=== PATIENT | female | born 1980 | race African-American/Black ===

== ENCOUNTER 2020-09-26 21:06 | Emergency (ER) | payer MEDICAID ==
[~2020-09-26] VITALS: Ht 165.1 cm; Wt 63.5 kg
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
[2020-09-26] MEDS ORDERED: ZIPRASIDONE MESYLATE 20 MG/ML VIAL IM ONE (21:25)
--- NOTE | 2020-09-26 21:51 | NUR ---
PEDRO ABHIJIT WAS SWABBED AND GIVEN TO LAB AT BEDSIDE
--- NOTE | 2020-09-26 22:30 | NUR ---
LAB AT BEDSIDE DRAWING BLOOD. COVID NOVEL WAS DONE AND SENT WITH LAB.
[2020-09-26 22:38] LABS: APPEARANCE,URINE CLEAR (CLEAR); BILIRUBIN,URINE NEGATIVE (NEGATIVE); BLOOD, URINE NEGATIVE (NEGATIVE); COLOR,URINE YELLOW (YELLOW); LEUKOCYTE ESTERASE ,URINE NEGATIVE (NEGATIVE); NITRITE, URINE NEGATIVE (NEGATIVE); UGLUCOSE NEGATIVE (NEGATIVE)
[2020-09-26 22:41] LABS: BASOPHILS # (AUTO) 0.2 K/uL (0.00-0.22); BASOPHILS % (AUTO) 3.1 % (0.0-2.0); EOSINOPHILS # (AUTO) 0.2 K/uL (0-0.4); EOSINOPHILS % (AUTO) 2.3 % (0.0-4.0); HEMATOCRIT 33.1 % (36-48); HEMOGLOBIN 10.7 g/dL (12.0-16.0); LYMPHOCYTES # (AUTO) 1.6 K/uL (2.5-16.5); LYMPHOCYTES % (AUTO) 22.4 % (20.5-51.1); MEAN CORPUSCULAR HEMOGLOBIN 27 pg (27-31); MEAN CORPUSCULAR HGB CONC 32 g/dL (33-37); MEAN CORPUSCULAR VOLUME 83.4 fL (80-94); MONOCYTES # (AUTO) 0.5 K/uL (0.8-1.0); MONOCYTES % (AUTO) 6.6 % (1.7-9.3); NEUTROPHILS # (AUTO) 4.7 K/uL (1.8-7.7); NEUTROPHILS % (AUTO) 65.6 % (42.2-75.2); PLATELET COUNT (AUTO) 413 K/uL (140-450); RED BLOOD CELL COUNT(AUTO) 3.96 MIL/uL (4.20-5.40); RED CELL DISTRIBUTION WIDTH 17.3 % (11.6-13.7); WHITE BLOOD COUNT (AUTO) 7.2 K/uL (4.8-10.8)
[2020-09-26 22:48] LABS: BARBITURATE, URINE NEGATIVE ng/ml (NEG <=200); BENZODIAZEPINE, URINE NEGATIVE ng/mL (NEG <=200); CANNABINOID, URINE POSITIVE ng/mL (NEG <=50); COCAINE, URINE NEGATIVE ng/mL (NEG <=300); PHENCYCLIDINE SCREEN,URINE NEGATIVE ng/mL (NEG <=25)
[2020-09-26 22:49] LABS: OPIATE, URINE NEGATIVE ng/mL (NEG <=2000)
[2020-09-26 22:58] LABS: ANION GAP 16.8 (8-16); ASPARTATE AMINOTRANSFERASE 21 U/L (15-37); CARBON DIOXIDE 25.2 mmol/L (21-32); CHLORIDE 103 mmol/L (98-107); CREATININE 1.1 mg/dL (0.6-1.3); GFR ARICAN-AMERICAN 71 mL/min (>90); GLUCOSE 93 mg/dL (74-106); SALICYLATE 3.1 mg/dL (2.8-20.0); SODIUM SERUM 141 mmol/L (136-145); TOTAL BILIRUBIN 0.2 mg/dL (0.0-1.0); UREA NITROGEN, BLOOD 7 mg/dL (7-18)
[2020-09-26 23:00] LABS: ACETAMINOPHEN < 0.5 ug/ml (10-30)
--- NOTE | 2020-09-27 03:00 | NUR ---
PT RESTING IN BED COMFORTABLY. WILL REDRAWN LABS AT 0500 FOR REPEAT ALCOHOL SERUM.
--- NOTE | 2020-09-27 03:09 | NUR ---
PT AWAKE, ASKED FOR A BLANKET, BROUGHT HER A BLANKET AND STARTED YELLING AND BEING VERBALLY AGGRESSIVE.
--- NOTE | 2020-09-27 03:14 | NUR ---
PT THREW SANDWICH AT NURSING STATION. PT REDIRECTED TO ROOM AND IS NOW LAYING DOWN.
[2020-09-27] MEDS ORDERED: diphenhydrAMINE 50 MG/ML VIAL IM ONE (03:30)
[2020-09-27] MEDS ORDERED: LORazepam 2 MG/ML VIAL IM ONE (03:30)
[2020-09-27] MEDS ORDERED: ZIPRASIDONE MESYLATE 20 MG/ML VIAL IM ONE (03:30)
--- NOTE | 2020-09-27 06:51 | NUR ---
PT WOKE UP, ASKED FOR A BLANKET. PT DID NOT GET AGGRESSIVE WHEN IN THE ROOM, PT WAS COMPLIANT. NEW BLANKET AND NEW MASK WAS GIVEN.
--- NOTE | 2020-09-27 07:15 | NUR ---
Patient provided with non-slip socks, restraints removed, and ambulated to restroom with steady/even gait.
--- NOTE | 2020-09-27 07:15 | NUR ---
Report and continuation of care received from KAYLA Corley.
--- NOTE | 2020-09-27 07:40 | NUR ---
Patient provided with turkey sandwich and 2 cranberry juices per request. Pt presents sleeping in semi-fowlers position at this time. Respirations even/unlabored.
--- NOTE | 2020-09-27 08:15 | NUR ---
Patient completed one cranberry juice, sandwich sitting at bedside. Pt presents both eyes closed lying on right side in low-fowlers position. Bed locked in lowest position, side rails x2.
--- NOTE | 2020-09-27 09:05 | NUR ---
Received packet. [facility] aware patient is pending PCR Covid results.
--- NOTE | 2020-09-27 09:17 | NUR ---
Packet faxed to: [facility]
--- NOTE | 2020-09-27 09:22 | NUR ---
Patient lying on right side of bed in low-fowlers position. Patient completed sandwich. Respirations even/unlabored. Bed locked in lowest position, side rails x 2.
--- NOTE | 2020-09-27 10:50 | NUR ---
SPOKE TO JUAN FROM [facility] REGARDING PATIENT. STATES SHE WILL CALL BACK WITH A BED ASSIGNMENT
--- NOTE | 2020-09-27 11:20 | NUR ---
Patient lying upright in bed, low-fowlers position. Respirations even/unlabored. Bed locked in lowest position, side rails x 2.
--- NOTE | 2020-09-27 11:56 | NUR ---
Report provided via telephone to KAYLA Thacker at [facility]. Accepting doctor: Dr. Urbina
--- NOTE | 2020-09-27 12:05 | NUR ---
Patient to be transferred to [facility]. Is being transferred due to higher level of care. Receiving facility has accepting physician and available space. ER physician has signed transfer form. Patient or responsible democrat has agreed to transfer and signed form. Patient belongings inventoried and will be sent with patient. Copy of nursing notes, lab reports, EKG, Physicians Orders and X-rays to be sent with patient. Report called to KAYLA Thacker at receiving facility. [facility] ambulance service has been called for transfer. ETA is 45 minutes.
--- NOTE | 2020-09-27 13:39 | NUR ---
[facility] is at bedside to pick patient up. Security paged to bring personal belongings.
[2020-09-27 13:40] VITALS: BP 124/72
== END 2020-09-27 13:39 | disposition designated cancer center or children's hospital (05) ==
LOC: MED 21:06
DX: R45.851 Suicidal ideations (principal); F79 Unspecified intellectual disabilities; I10 Essential (primary) hypertension; F31.9 Bipolar disorder, unspecified; Z91.018 Allergy to other foods; Z20.822 Contact with and (suspected) exposure to COVID-19
CPT/HCPCS: 36415; 80053; 80305; 81003; 81025; 84484; 85025; 87426; 96372; 99285; G0480; G0482; J1200; J2060; J3486; U0003

== ENCOUNTER 2023-02-22 05:20 | Emergency (ER) | payer MEDICAID ==
[~2023-02-22] VITALS: Ht 175.3 cm; Wt 68.0 kg
[2023-02-22] VITALS (8 sets, daily range): BP systolic 142; BP diastolic 85; PULSE 64; RESP 17; TEMP 98; O2SAT 98–99
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
[2023-02-22 05:43] LABS: BASOPHILS % (AUTO) 0.3 % (0.0-2.0); EOSINOPHILS # (AUTO) 0.1 K/uL (0-0.4); HEMATOCRIT 36.5 % (36-48); HEMOGLOBIN 11.8 g/dL (12.0-16.0); LYMPHOCYTES # (AUTO) 2.1 K/uL (2.5-16.5); LYMPHOCYTES % (AUTO) 32.3 % (20.5-51.1); MEAN CORPUSCULAR HEMOGLOBIN 27 pg (27-31); MEAN CORPUSCULAR HGB CONC 32 g/dL (33-37); MEAN CORPUSCULAR VOLUME 84.7 fL (80-94); MONOCYTES # (AUTO) 0.4 K/uL (0.8-1.0); MONOCYTES % (AUTO) 6.6 % (1.7-9.3); NEUTROPHILS # (AUTO) 3.9 K/uL (1.8-7.7); NEUTROPHILS % (AUTO) 59.8 % (42.2-75.2); PLATELET COUNT (AUTO) 235 K/uL (140-450); RED BLOOD CELL COUNT(AUTO) 4.32 MIL/uL (4.20-5.40); RED CELL DISTRIBUTION WIDTH 17.1 % (11.6-13.7); WHITE BLOOD COUNT (AUTO) 6.6 K/uL (4.8-10.8)
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
[2023-02-22 06:00] LABS: BARBITURATE, URINE NEGATIVE ng/ml (NEG <=200); BENZODIAZEPINE, URINE NEGATIVE ng/mL (NEG <=200); CANNABINOID, URINE POSITIVE ng/mL (NEG <=50); COCAINE, URINE NEGATIVE ng/mL (NEG <=300); OPIATE, URINE NEGATIVE ng/mL (NEG <=2000); PHENCYCLIDINE SCREEN,URINE NEGATIVE ng/mL (NEG <=25)
[2023-02-22 06:21] LABS: ALBUMIN 3.4 g/dL (3.4-5.0); ANION GAP 12.8 (8-16); ASPARTATE AMINOTRANSFERASE 132 U/L (15-37); CARBON DIOXIDE 27.7 mmol/L (21-32); CHLORIDE 103 mmol/L (98-107); CREATININE 0.8 mg/dL (0.6-1.3); GFR ARICAN-AMERICAN 102 mL/min (>90); GLUCOSE 83 mg/dL (74-106); POTASSIUM 3.5 mmol/L (3.5-5.1); SALICYLATE 3.2 mg/dL (2.8-20.0); SODIUM SERUM 140 mmol/L (136-145); TOTAL BILIRUBIN 0.3 mg/dL (0.0-1.0); UREA NITROGEN, BLOOD 2 mg/dL (7-18)
--- NOTE | 2023-02-22 06:28 | NUR ---
DR. REYNOSO AT BEDSIDE
[2023-02-22 06:44] LABS: ACETAMINOPHEN < 0.5 ug/ml (10-30)
--- NOTE | 2023-02-22 07:19 | NUR ---
Pt report given to CHANDLER PACHECO. Transfer of care at this time.
--- NOTE | 2023-02-22 07:22 | NUR ---
PT SLEEPING , CHEST RISE/FALL NOTED, CONTINUE TO MONITOR FROM NURSING STATION BY ED STAFF. SAFETY MAINTAINED.
--- NOTE | 2023-02-22 08:46 | NUR ---
PT CONTINUES TO SLEEP, CHEST RISE/FALL NOTED, CONTINUE TO MONITOR FROM NURSING STATION BY ED STAFF. SAFETY MAINTAINED.
--- NOTE | 2023-02-22 10:05 | NUR ---
DR. SHAH AT BEDSIDE FOR PSYCH EVAL. PT PLACED ON 5150 HOLD FOR DTS.
--- NOTE | 2023-02-22 10:33 | NUR ---
PT LAYING IN BED TALKING TO HERSELF
[2023-02-22] MEDS ORDERED: ACETAMINOPHEN EXTRA STRENGTH 500 MG TAB PO ONE (12:20)
--- NOTE | 2023-02-22 12:20 | NUR ---
TYLENOL 1000MG AND PROZAC 20MG GIVEN. PT ATE SANDWICH AND ORANGE JUICE
[2023-02-22] MEDS: OLANZapine 5 MG ODT PO SCH ×2 (12:29→17:00)
--- NOTE | 2023-02-22 13:53 | NUR ---
PT PLACED ON 5150 HOLD.
--- NOTE | 2023-02-22 16:01 | NUR ---
PT CONTINUES TO SLEEP, CHEST RISE/FALL NOTED, CONTINUE TO MONITOR FROM NURSING STATION BY ED STAFF. SAFETY MAINTAINED.
--- NOTE | 2023-02-22 17:10 | NUR ---
PT REFUSED TO TAKE MEDICATION, STATES SHE JUST WANTS TO SLEEP.
--- NOTE | 2023-02-22 18:46 | NUR ---
PT CONTINUES TO SLEEP, CHEST RISE/FALL NOTED, CONTINUE TO MONITOR FROM NURSING STATION BY ED STAFF. SAFETY MAINTAINED.
--- NOTE | 2023-02-22 19:54 | NUR ---
RECEIVED REPORT FROM CHANDLER PACHECO. PT ASLEEP IN BED. RESPIRATIONS EVEN AND UNLABORED. IN VIEW OF NURSES STATION. BED IN LOWEST POSITION.
--- NOTE | 2023-02-22 21:50 | NUR ---
PT SLEEPING IN BED WITH NO S/S PAIN OR DISTRESS. BED IN LOWEST POSITION. SAFETY MEASURES IN PLACE. PT IN VIEW OF NURSES STATION AND STAFF.
--- NOTE | 2023-02-22 23:58 | NUR ---
PT SLEEPING IN BED WITH NO S/S PAIN OR DISTRESS. SAFETY MEASURES IN PLACE. IN VIEW OF NURSES STATION.
[2023-02-23 00:21] VITALS: O2SAT 99
--- NOTE | 2023-02-23 02:11 | NUR ---
PT SLEEPING IN BED WITH NO S/S PAIN OR DISTRESS. SAFETY MEASURES IN PLACE. IN VIEW OF NURSES STATION.
[2023-02-23 02:39] VITALS: O2SAT 99
--- NOTE | 2023-02-23 04:13 | NUR ---
PT SLEEPING, RESPIRATIONS EVEN AND UNLABORED. SAFETY MEASURES IN PLACE.
[2023-02-23 04:53] VITALS: O2SAT 98
[2023-02-23 05:13] VITALS: O2SAT 98
--- NOTE | 2023-02-23 06:21 | NUR ---
PT ASLEEP WITH NO S/S PAIN OR DISTRESS. RESPIRATIONS EVEN AND UNLABORED. PT IN VIEW OF NURSES STATION. SAFETY MEASURES IN PLACE.
--- NOTE | 2023-02-23 07:17 | NUR ---
Pt report given to CHANDLER ENAMORADO. Transfer of care at this time.
--- NOTE | 2023-02-23 07:20 | NUR ---
Report recieved from CHANDLER Person for transfer of care.
--- NOTE | 2023-02-23 08:45 | NUR ---
Patient is sitting up on bed, eating breakfast.
[2023-02-23] MEDS ORDERED: FLUoxetine 20 MG CAP PO SCH (09:00)
--- NOTE | 2023-02-23 09:15 | NUR ---
Patient is requesting to call sister Jannie [phone]. No answer. Patient wants to leave voicemail, patient was handed phone.
--- NOTE | 2023-02-23 09:24 | NUR ---
Patient talking on the phone with family.
--- NOTE | 2023-02-23 11:27 | NUR ---
Packet faxed to: [facility]
--- NOTE | 2023-02-23 11:50 | NUR ---
Patient is resting on bed, respirations even and unlabored. No signs of distress noted. Close to nurses station. Frequent visual rounds being made.
--- NOTE | 2023-02-23 12:01 | NUR ---
Spoke to Mariajose at [facility]. Patient has been accepted by Dr. Antonio, going to [facility]. Requesting patient to arrive by 4PM. Call for report 30 minutes prior to arrival at [phone], press [phone] then [phone]. If any issues occur for giving report please call back Mariajose at [phone], her fax number is [phone].
--- NOTE | 2023-02-23 13:35 | NUR ---
Patient was provided with lunch tray, patient has 8/[address] low back[address] Dr. Nuñez made aware.
[2023-02-23] MEDS: OLANZapine 5 MG ODT PO SCH (13:42)
[2023-02-23] MEDS ORDERED: ACETAMINOPHEN EXTRA STRENGTH 500 MG TAB PO ONE (14:00)
--- NOTE | 2023-02-23 15:47 | NUR ---
Called and gave report to Gerardo at [facility].
[2023-02-23 17:17] VITALS: BP 151/87; PULSE 75; RESP 16; TEMP 97.5; O2SAT 99
--- NOTE | 2023-02-23 17:17 | NUR ---
Patient to be transferred to [facility]. Is being transferred due to Insurance. Receiving facility has accepting physician and available space. ER physician has signed transfer form. Patient or responsible libertarian has agreed to transfer and signed form. Patient belongings inventoried and will be sent with patient. Copy of nursing notes, lab reports, EKG, Physicians Orders and X-rays to be sent with patient. Report called to Gerardo at receiving facility. [facility] ambulance service has been called for transfer. ETA is now.
--- NOTE | 2023-02-23 18:02 | NUR ---
The patient's care was reviewed and supervised by ANTONIO URIBE RN.
== END 2023-02-23 17:17 | disposition short-term general hospital (02) ==
LOC: MED 05:20
DX: R45.851 Suicidal ideations (principal); F29 Unspecified psychosis not due to a substance or known physiological condition; F22 Delusional disorders; I10 Essential (primary) hypertension; Z91.018 Allergy to other foods; Z20.822 Contact with and (suspected) exposure to COVID-19
CPT/HCPCS: 36415; 80053; 80305; 81025; 82550; 85025; 87426; 99285; G0480; G0482